=== PATIENT | male | born 1960 | race African-American/Black ===

== ENCOUNTER 2018-03-27 06:09 | Day surgery (SDC) | payer MEDICAID ==
[~2018-03-27] VITALS: Ht 175.3 cm; Wt 93.0 kg
[~2018-03-27 06:09] MED LIST: CYCLOPENTOLATE HCL 1% OPHTH DROPS 2ML RIGHTEYE SCH; LACTATED RINGERS 1,000 ML IV SCH; PHENYLEPHRINE HCL 10% OPHTH DROPS 5ML RIGHTEYE SCH; TROPICAMIDE 1% OPHTH DROPS 15ML RIGHTEYE SCH
[2018-03-27] MEDS ORDERED: BALANCED SALT IRRIG SOLN COMB1 500ML OP ONE (07:00)
[2018-03-27] MEDS ORDERED: HYALURONATE SODIUM 14 MG/ML 0.85ML SYRINGE IO ONE (07:18)
[2018-03-27] MEDS ORDERED: MIDAZOLAM HCL 2 MG/2 ML VIAL ONE (08:12)
[2018-03-27] MEDS ORDERED: FENTANYL CITRATE/PF 50MCG/ML 2ML VIAL ONE (08:12)
[2018-03-27] MEDS ORDERED: PROPOFOL 200MG/20ML VIAL IV ONE (08:15)
[2018-03-27] MEDS ORDERED: LIDOCAINE HCL/PF 1% 10 MG/ML 5ML VIAL ONE (08:16)
[2018-03-27] MEDS ORDERED: DEXAMETHASONE 4MG/ML 1ML VIAL ONE (08:22)
[2018-03-27] MEDS ORDERED: ONDANSETRON HCL 4MG/2ML VIAL ONE (08:22)
[2018-03-27] MEDS ORDERED: HYDROMORPHONE HCL/PF 2MG/ML CPJ IV PRN (08:30)
[2018-03-27] MEDS ORDERED: LABETALOL 5MG/ML SYR 20 MG/4 ML SYRINGE IV PRN (08:30)
[2018-03-27] MEDS ORDERED: ONDANSETRON HCL 4MG/2ML VIAL IV PRN (08:30)
[2018-03-27] MEDS ORDERED: MEPERIDINE HCL/PF 25MG/ML CPJ IV PRN (08:30)
[2018-03-27] MEDS ORDERED: FLUT16SP15 BOTHNSTRLS (09:46)
[2018-03-27] MEDS ORDERED: PRED1DRO RIGHTEYE (09:46)
[2018-03-27] MEDS ORDERED: TERA2CAP4 PO (09:46)
[2018-03-27] MEDS ORDERED: AMLO10TA80 PO (09:46)
[2018-03-27] MEDS ORDERED: PREDNISOLONE ACETATE 1% OPHTH DROPS 1ML ONE (15:07)
[2018-03-27] MEDS ORDERED: CYCLOPENTOLATE HCL 1% OPHTH DROPS 2ML ONE (15:07)
[2018-03-27] MEDS ORDERED: TETRACAINE 0.5% OPHTH DROPS 4ML ONE (15:07)
[2018-03-27] MEDS ORDERED: PHENYLEPHRINE HCL 10% OPHTH DROPS 5ML ONE (15:07)
[2018-03-27] MEDS ORDERED: BUPIVACAINE HCL/PF 0.75% (7.5MG/ML) 10ML ONE (15:07)
[2018-03-27] MEDS ORDERED: LIDOCAINE HCL 2%/EPINEPHRINE 1:100,000 20 ML VIAL INFIL ONE (15:07)
[2018-03-27] MEDS ORDERED: NEO/POLYMYX B SULF/DEXAMETH OPHTH OINT 3.5GM ONE (15:07)
[2018-03-27] MEDS ORDERED: BALANCED SALT IRRIG SOLN 15ML ONE (15:07)
[2018-03-27] MEDS ORDERED: TROPICAMIDE 1% OPHTH DROPS 15ML ONE (15:07)
== END 2018-03-27 09:55 | disposition home or self-care (01) ==
LOC: OR 06:09
PROVIDERS: ATTEND Ophthalmology
DX: H25.89 Other age-related cataract (principal); I10 Essential (primary) hypertension; H40.89 Other specified glaucoma
CPT/HCPCS: J1100; J2250; J2405; J2704; J3010; J3490; J7120; V2632

== ENCOUNTER 2021-04-10 10:02 | Inpatient (IN) | payer MEDICAID ==
[~2021-04-10] VITALS: Ht 175.3 cm; Wt 83.5 kg
[~2021-04-10 10:02] MED LIST changes: +AMLO10TA80 PO; -CYCLOPENTOLATE HCL 1% OPHTH DROPS 2ML RIGHTEYE SCH; +FLUT16SP15 BOTHNSTRLS; -LACTATED RINGERS 1,000 ML IV SCH; -PHENYLEPHRINE HCL 10% OPHTH DROPS 5ML RIGHTEYE SCH; +PRED1DRO RIGHTEYE; +TERA2CAP4 PO; -TROPICAMIDE 1% OPHTH DROPS 15ML RIGHTEYE SCH
[2021-04-10 10:42] LABS: BASOPHILS % 0.5 % (0.0-2.0); EOSINOPHILS % 2.3 % (0.0-5.0); HEMATOCRIT. 44.2 % (42.0-52.0); HEMOGLOBIN. 15.3 g/dL (14.0-18.0); LYMPHOCYTES % 26.9 % (20.0-50.0); MEAN CORPUSCULAR HEMOGLOBIN 31.6 pg (28.0-32.0); MEAN CORPUSCULAR VOLUME 91.6 fL (80.0-94.0); MONOCYTES % 5.6 % (2.0-8.0); NEUTROPHILS % 64.7 % (40.0-76.0); PLATELET 130 x1000/uL (130-400); RED BLOOD CELL COUNT 4.83 mill/uL (4.7-6.1); RED CELL DISTRIBUTION WIDTH 15.1 % (11.6-14.6)
[2021-04-10 10:53] LABS: CHLORIDE 109 mEq/L (98-107)
[2021-04-10] MEDS ORDERED: SODIUM CHLORIDE 0.9% 1,000 ML IV ONE (12:45)
[2021-04-10] MEDS ORDERED: ENOXAPARIN 80MG/0.8ML SYR SUBCUT ONE (12:45)
[2021-04-10] MEDS ORDERED: IOHEXOL-350 100 ML BOTTLE ONE (13:07)
[2021-04-10] MEDS ORDERED: ALTEPLASE 100MG/VIAL IV ONE ×2 (16:00)
[2021-04-11] VITALS (80 sets, daily range): BP systolic 74–182; BP diastolic 27–128
[2021-04-11] MEDS ORDERED: ONDANSETRON HCL 4MG/2ML INJ IV PRN (06:00)
[2021-04-11] MEDS ORDERED: MORPHINE SULFATE 2 MG/ML CPJ (NOT FOR IM USE) IV PRN (06:00)
[2021-04-11] MEDS: AMLODIPINE 10MG TABLET PO SCH (08:23)
[2021-04-11] MEDS: PANTOPRAZOLE SODIUM 40 MG/VIAL IV SCH (08:24)
[2021-04-11 09:11] LABS: BASOPHILS % 0.2 % (0.0-2.0); EOSINOPHILS % 2.5 % (0.0-5.0); HEMATOCRIT. 40.3 % (42.0-52.0); HEMOGLOBIN. 13.6 g/dL (14.0-18.0); LYMPHOCYTES % 30.6 % (20.0-50.0); MEAN CORPUSCULAR VOLUME 91.7 fL (80.0-94.0); MEAN PLATELET VOLUME 8.1 fl (7.4-10.4); MONOCYTES % 12.1 % (2.0-8.0); NEUTROPHILS % 54.6 % (40.0-76.0); PLATELET 133 x1000/uL (130-400); RED CELL DISTRIBUTION WIDTH 15.1 % (11.6-14.6)
[2021-04-11 09:17] LABS: CHLORIDE 112 mEq/L (98-107)
[2021-04-11 09:19] LABS: PARTIAL THROMBOPLASTIN TIME 31.8 sec (23.4-31.0)
[2021-04-11 09:25] LABS: PROTHROMBIN TIME 20.1 sec (9.6-11.0)
[2021-04-11] MEDS ORDERED: IODIXANOL 320MG/ML 100 ML BOTTLE IV ONE (09:33)
[2021-04-11] MEDS ORDERED: LIDOCAINE HCL 1% 20ML VIAL (Pyxis) INJ ONE (09:34)
[2021-04-11] MEDS ORDERED: IOHEXOL-300 100 ML BOTTLE ONE (09:34)
[2021-04-11] MEDS ORDERED: MIDAZOLAM HCL 2 MG/2 ML VIAL ONE (09:34)
[2021-04-11] MEDS ORDERED: FENTANYL CITRATE/PF 50MCG/ML 2ML VIAL ONE (09:35)
[2021-04-11] MEDS ORDERED: HEPARIN SODIUM 1,000 UNIT/1ML VIAL IV ONE (09:54)
[2021-04-11] MEDS ORDERED: HEPARIN 1000 UNITS/ML 10ML ONE (09:59)
[2021-04-11 10:15] LABS: CLARITY URINE CLEAR (CLEAR); COLOR URINE YELLOW (YELLOW); KETONES URINE NEGATIVE (NEGATIVE); LEUKOCYTE ESTERASE URINE NEGATIVE (NEGATIVE); NITRITE URINE NEGATIVE (NEGATIVE); OCCULT BLOOD URINE 1+ (NEGATIVE); PH URINE 5.5 (4.5-8.0); PROTEIN URINE NEGATIVE (NEGATIVE); SPECIFIC GRAVITY URINE 1.015 (1.005-1.030); UROBILINOGEN URINE 0.2 E.U./dL (0.2-1.0)
[2021-04-11 10:31] LABS: METHADONE URINE SCREEN NEGATIVE (NEGATIVE); OPIATES URINE SCREEN NEGATIVE (NEGATIVE)
[2021-04-11 10:32] LABS: *AMPHETAMINES SCREEN URINE NEGATIVE (NEGATIVE); *BARBITURATES SCREEN URINE NEGATIVE (NEGATIVE); *BENZODIAZEPINES SCREEN URINE PRESUMTIVE POSITIVE (NEGATIVE); *COCAINE SCREEN URINE NEGATIVE (NEGATIVE); CANNABINOID URINE SCREEN NEGATIVE (NEGATIVE); PHENCYCLIDINE URINE SCREEN NEGATIVE (NEGATIVE)
[2021-04-11] MEDS ORDERED: ACETAMINOPHEN 325MG TABLET PO PRN (11:00)
[2021-04-11] MEDS ORDERED: MIDAZOLAM HCL 5 MG/5 ML VIAL ONE (11:44)
[2021-04-11] MEDS ORDERED: FENTANYL CITRATE/PF 50MCG/ML 5ML VIAL ONE (11:45)
[2021-04-11] MEDS ORDERED: ATROPINE SULFATE 1MG/10ML SYR IV PRN (11:45)
[2021-04-11] MEDS: PREDNISOLONE ACETATE 1% OPHTH DROPS 5ML RIGHTEYE SCH ×3 (12:55→21:00)
[2021-04-12] VITALS (61 sets, daily range): BP systolic 102–155; BP diastolic 44–91
[2021-04-12 06:36] LABS: BASOPHILS % 0.2 % (0.0-2.0); EOSINOPHILS % 2.5 % (0.0-5.0); HEMATOCRIT. 38.7 % (42.0-52.0); HEMOGLOBIN. 12.7 g/dL (14.0-18.0); LYMPHOCYTES % 22.5 % (20.0-50.0); MEAN CORPUSCULAR HEMOGLOBIN 30.2 pg (28.0-32.0); MEAN CORPUSCULAR VOLUME 91.8 fL (80.0-94.0); MONOCYTES % 10.8 % (2.0-8.0); PLATELET 149 x1000/uL (130-400); RED BLOOD CELL COUNT 4.22 mill/uL (4.7-6.1); RED CELL DISTRIBUTION WIDTH 14.9 % (11.6-14.6)
[2021-04-12 06:51] LABS: INR 1.1; PROTHROMBIN TIME 12.2 sec (9.6-11.0)
[2021-04-12 07:24] LABS: CHLORIDE 108 mEq/L (98-107)
[2021-04-12] MEDS: ENOXAPARIN 80MG/0.8ML SYR SUBCUT SCH ×2 (08:04→20:59)
[2021-04-12] MEDS: PANTOPRAZOLE SODIUM 40 MG/VIAL IV SCH (08:05)
[2021-04-12] MEDS: AMLODIPINE 10MG TABLET PO SCH (08:05)
[2021-04-12] MEDS: PREDNISOLONE ACETATE 1% OPHTH DROPS 5ML RIGHTEYE SCH ×4 (08:05→20:58)
[2021-04-12] MEDS: ASPIRIN 325MG EC TABLET PO SCH (12:03)
[2021-04-13] VITALS (8 sets, daily range): BP systolic 109–150; BP diastolic 45–82
[2021-04-13] MEDS: PANTOPRAZOLE SODIUM 40 MG/VIAL IV SCH (08:40)
[2021-04-13] MEDS: PREDNISOLONE ACETATE 1% OPHTH DROPS 5ML RIGHTEYE SCH ×2 (08:40→13:20)
[2021-04-13] MEDS: ENOXAPARIN 80MG/0.8ML SYR SUBCUT SCH (08:40)
[2021-04-13] MEDS: AMLODIPINE 10MG TABLET PO SCH (08:41)
[2021-04-13] MEDS: ASPIRIN 325MG EC TABLET PO SCH (08:41)
[2021-04-13] MEDS ORDERED: RIVAROXABAN 15 MG TABLET PO SCH (17:00)
[2021-04-14] MEDS ORDERED: ASPIRIN 81MG TABLET PO SCH (09:00)
[2021-05-04] MEDS ORDERED: RIVAROXABAN 20 MG TABLET PO SCH (17:20)
== END 2021-04-13 14:00 | disposition home or self-care (01) | DRG 134 ==
LOC: ER 10:02 → EDBEDREQTM 12:50 → EDBEDREQ 12:50 → CVICU 14:57 → EDBEDREQ 15:05 → EDBEDREQSVC 15:05 → EDBEDREQTM 15:05 → EDBEDREQ 15:06 → CANRESERV 18:15 → ENRESERV 18:15 → CANRESERV 18:50 → ENRESERV 18:50 → 3WST 04-12 15:20
PROVIDERS: ADMIT Internal Medicine; ATTEND Internal Medicine
PROC: 3E03317 Introduction of Other Thrombolytic into Peripheral Vein, Percutaneous Approach (ICD-10-PCS; 2021-04-10)
PROC: 4A023N6 Measurement of Cardiac Sampling and Pressure, Right Heart, Percutaneous Approach (ICD-10-PCS; principal; 2021-04-11)
PROC: B54BZZA Ultrasonography of Right Lower Extremity Veins, Guidance (ICD-10-PCS; 2021-04-11)
PROC: 02CQ3ZZ Extirpation of Matter from Right Pulmonary Artery, Percutaneous Approach (ICD-10-PCS; 2021-04-11)
PROC: 02CP3ZZ Extirpation of Matter from Pulmonary Trunk, Percutaneous Approach (ICD-10-PCS; 2021-04-11)
PROC: B519YZZ Fluoroscopy of Inferior Vena Cava using Other Contrast (ICD-10-PCS; 2021-04-11)
PROC: B51GYZZ Fluoroscopy of Left Pelvic (Iliac) Veins using Other Contrast (ICD-10-PCS; 2021-04-11)
PROC: B51CYZZ Fluoroscopy of Left Lower Extremity Veins using Other Contrast (ICD-10-PCS; 2021-04-11)
PROC: B31TYZZ Fluoroscopy of Left Pulmonary Artery using Other Contrast (ICD-10-PCS; 2021-04-11)
PROC: B31SYZZ Fluoroscopy of Right Pulmonary Artery using Other Contrast (ICD-10-PCS; 2021-04-11)
DX: I26.02 Saddle embolus of pulmonary artery with acute cor pulmonale (principal); J96.01 Acute respiratory failure with hypoxia; I27.20 Pulmonary hypertension, unspecified; E44.1 Mild protein-calorie malnutrition; E87.8 Other disorders of electrolyte and fluid balance, not elsewhere classified; N28.1 Cyst of kidney, acquired; Z20.822 Contact with and (suspected) exposure to COVID-19; I82.401 Acute embolism and thrombosis of unspecified deep veins of right lower extremity; I10 Essential (primary) hypertension; N40.0 Benign prostatic hyperplasia without lower urinary tract symptoms; I25.2 Old myocardial infarction; Z79.899 Other long term (current) drug therapy; Z68.27 Body mass index [BMI] 27.0-27.9, adult
CPT/HCPCS: 36415; 37184; 71045; 71275; 75741; 75825; 80048; 80053; 80305; 81003; 83880; 84484; 85025; 85347; 85379; 87426; 93005; 93306; 93970; 99291; 99292; C1760; C1766; C1769; C1887; C1893; C1894; C9113; J1644; J1650; J2250; J2997; J3010; J3490; J7030; Q9967; C1757

== ENCOUNTER 2021-05-02 14:23 | Emergency (ER) | payer MEDICAID ==
[~2021-05-02] VITALS: Ht 175.3 cm; Wt 89.0 kg
[2021-05-02] MEDS ORDERED: HYDROCODONE/ACETAMINOPHEN 5/325MG TABLET PO STA (15:45)
[2021-05-02] MEDS ORDERED: ACET-2708 PO (18:14)
[2021-05-02 18:55] VITALS: BP 120/72
== END 2021-05-02 18:56 | disposition home or self-care (01) ==
LOC: ER 14:23
DX: S80.11XA Contusion of right lower leg, initial encounter (principal); W22.8XXA Striking against or struck by other objects, initial encounter; Y93.89 Activity, other specified; Y92.89 Other specified places as the place of occurrence of the external cause; Y99.8 Other external cause status; Z98.890 Other specified postprocedural states
CPT/HCPCS: 73590; 93971; 99284